=== PATIENT | female | born 1985 | race Asian ===

== ENCOUNTER 2019-05-31 09:27 | Outpatient (CLI) | payer MEDICAID ==
[2019-05-31 09:55] LABS: APPEARANCE,URINE CLEAR; BILIRUBIN, URINE NEGATIVE (NEGATIVE); GLUCOSE, URINE (UA) NEGATIVE (NEGATIVE); KETONES,URINE 1+ (NEGATIVE); LEUKOCYTE ESTERASE ,URINE 1+ (NEGATIVE); NITRITE,URINE NEGATIVE (NEGATIVE); PH,URINE 6 (4.5-8.0); PROTEIN,URINE 1+ (NEGATIVE); UROBILINOGEN,URINE NORMAL MG/DL (0.0-1.0)
[2019-05-31 10:09] LABS: COLOR,URINE YELLOW
[2019-05-31 10:13] LABS: ANION GAP 11 mmol/L (5-15); BLOOD UREA NITROGEN 17 mg/dL (7-18); CALCIUM 9.2 MG/DL (8.5-10.1); CARBON DIOXIDE 26 MMOL/L (21-32); CHLORIDE 103 MMOL/L (98-107); CREATININE 0.8 MG/DL (0.55-1.30); POTASSIUM 3.6 MMOL/L (3.5-5.1); SODIUM 140 MMOL/L (136-145)
[2019-05-31 10:14] LABS: EOSINOPHILS % (AUTO) 4.3 % (0.0-3.0); HEMOGLOBIN 15.1 G/DL (12.0-16.0); LYMPHOCYTES % (AUTO) 34.1 % (20.0-45.0); MEAN CORPUSCULAR VOLUME 89 FL (80-99); MONOCYTES % (AUTO) 8.1 % (1.0-10.0); NEUTROPHILS % (AUTO) 52.4 % (45.0-75.0); PLATELET COUNT 345 K/UL (150-450); RED BLOOD COUNT 4.83 M/UL (4.20-5.40); RED CELL DISTRIBUTION WIDTH 10.9 % (11.6-14.8); WHITE BLOOD COUNT 6.2 K/UL (4.8-10.8)
[2019-05-31 10:19] LABS: INR 0.9 (0.9-1.1)
--- NOTE | 2019-05-31 14:50 | Diagnostic Imaging Report ---
Indication: Cough Technique: 2 views of the chest Comparison: None Findings: Lungs and pleural spaces are clear. The heart size is normal. The bones are unremarkable. No significant interim change. Impression: Negative
== END 2019-05-31 11:27 | disposition home or self-care (01) ==
LOC: RAD 09:27
DX: R05 Cough (principal)
CPT/HCPCS: 36415; 71046; 80048; 81001; 81025; 85025; 85610; 85730; 93005

== ENCOUNTER 2019-06-12 09:18 | Inpatient (IN) | payer MEDICAID ==
--- NOTE | 2019-06-08 16:00 | Pre-op HX & Phy Repo 2 SIG ---
DATE OF ADMISSION: 06/12/2019 DATE OF SURGERY: June 12, 2019. HISTORY OF PRESENT ILLNESS: The patient is a 34-year-old female in overall good health with a very strong family history of breast cancer and who has undergone genetic testing, which was negative, but has been diagnosed with invasive ductal carcinoma. She presented with bilateral breast pain. Mammogram and ultrasound were performed revealing an abnormality in the right breast low inner quadrant 3 o'clock 4 cm from the nipple, 1.8 cm mass and enlarged right axillary lymph node. Core biopsy of the right breast mass revealed invasive ductal carcinoma, estrogen and progesterone receptor negative, HER 2-, Ki-67 85%. The core biopsy of the right axillary lymph node was negative for carcinoma. She is scheduled to undergo right breast partial mastectomy and right axillary lymph node biopsy. She has consulted with oncologist who has advised to proceed with surgery at this time with additional treatment pending final pathology. PAST HISTORY: MEDICATIONS: She takes Zyrtec and Aleve as needed symptoms. ALLERGIES: None. OPERATIONS: Appendectomy in 1998. She is nulliparous. She has irregular menstrual periods. PHYSICAL EXAMINATION: VITAL SIGNS: The patient is 5 feet and 3 inches, 148 pounds. Vital signs within normal limits. HEENT: Within normal limits. LUNGS: Clear. HEART: Regular rhythm. BREASTS: Moderate in size and non ptotic. Left breast unremarkable. Right breast has palpable nodularity in the inner sector 3 o'clock between the areolar border in the periphery. There is no fixation to the chest wall or to the nipple areolar complex. There is only shotty axillary lymphadenopathy. No supraclavicular lymphadenopathy. ABDOMEN: Soft. PELVIC AND RECTAL: Per primary care. EXTREMITIES: Without edema. NEUROLOGIC: Physiologic. IMPRESSION: Invasive ductal carcinoma, right breast. PLAN: Right breast partial mastectomy and right axillary lymph node biopsy. I have had a full discussion with the patient regarding the nature of her condition, the nature of the surgery, indications, alternatives, options, and risks including bleeding, infection, injury to adjacent structures or organs, deformity of breast and/or nipple, need for additional treatment including surgery and other treatments including radiation, chemotherapy based on final pathology. All questions have been answered. She understands and agrees to proceed. Martín Hernandez M.D. DR: Miguel Ángel JOB#: [id number] CC: JORGE LUIS
[2019-06-12] VITALS (11 sets, daily range): BP systolic 124–150; BP diastolic 77–95
[~2019-06-12] VITALS: Ht 160 cm; Wt 65.3 kg
[2019-06-12] MEDS ORDERED: Lidocaine 1% 10mg/ml/Epi 0.005mg/ml 30ml vial INJ ONE (10:10)
[2019-06-12] MEDS ORDERED: Bupivacaine 0.5% Inj 30 ml vial INJ ONE (10:10)
[2019-06-12] MEDS ORDERED: Bupivacaine w/Epi 0.5% 30ml Vial INJ ONE (10:11)
[2019-06-12] MEDS ORDERED: NeoSporin Gu Irrig 1ml Amp IRRIG ONE (10:11)
[2019-06-12] MEDS ORDERED: Bacitracin 50000 Units Vial ONE (10:11)
[2019-06-12] MEDS ORDERED: ZYRTEC10 MG ORAL (10:16)
[2019-06-12] MEDS ORDERED: LR 1000ml 1,000 ML IVLG SCH (10:19)
--- NOTE | 2019-06-12 10:23 | Anethesia Preoperative Eval ---
Anesthesia Pre-op PMH/ROS General Date of Evaluation: Jun 12, 2019 Time of Evaluation: 11:19 Anesthesiologist: Juan ASA Score: ASA 2 Mallampati Score Class I : Soft palate, uvula, fauces, pillars visible Class II: Soft palate, uvula, fauces visible Class III: Soft palate, base of uvula visible Class IV: Only hard plate visible Mallampati Classification: Class I Surgeon: David Diagnosis: Right Breast Invasive Ductal Carcinoma Surgical Procedure: Right Breast Partial Mastectomy, R Axillary Lymph Node Biopsy Anesthesia History: none Family History: no anesthesia problems Allergies: Coded Allergies: No Known Allergies (Unverified , 06/09/19) Medications: see eMAR Patient NPO?: Yes NPO Date: Jun 12, 2019 NPO Time: 2199 Past Medical History Pulmonary: Reports: asthma Gastrointestinal/Genitourinary: Reports: GERD - GI Ulcer Hematology/Immune: Reports: other - Right Breast Invasive Ductal Carcinoma Anesthesia Pre-op Phys. Exam Physician Exam Last Vital Signs Date Time Temp Pulse Resp B/P (MAP) Pulse Ox O2 Delivery O2 Flow Rate FiO2 06/12/19 10:14 Room Air 06/12/19 10:11 97.8 66 18 130/77 (94) 98 Constitutional: NAD Neurologic: CN 2-12 intact Cardiovascular: RRR Respiratory: CTA Gastrointestinal: S/NT/ND Airway Exam Mallampati Score: Class I MO: full ROM: full Teeth: intact Anesthesia Pre-op A/P Risk Assessment & Plan Assessment: ASA 2 Plan: GA, SED Status Change Before Surgery: No Pre-Antibiotics Dru Gram Ancef IV Given Within 1 Hr of Incision: Yes Time Given: 11:36 Joo Martinez MD Jun 12, 2019 10:23
--- NOTE | 2019-06-12 10:28 | Immediate Post-Op Evaluation ---
Immediate Post-Op Evalulation Immediate Post-Op Evalulation Procedure: Right Breast Partial Mastectomy, R Axillary Lymph Node Biopsy Date of Evaluation: Jun 12, 2019 Time of Evaluation: 13:24 IV Fluids: 400 LR Blood Products: 0 Estimated Blood Loss: 25 Urinary Output: 0 Blood Pressure Systolic: 134 Blood Pressure Diastolic: 93 Pulse Rate: 80 Respiratory Rate: 16 O2 Sat by Pulse Oximetry: 100 Temperature (Fahrenheit): 98.4 Pain Score (1-10): 2 Nausea: No Vomiting: No Complications 0 Patient Status: awake, reacts, patent, none Hydration Status: adequate Dru Gram Ancef IV Given Within 1 Hr of Incision: Yes Time Given: 13:36 Joo Martinez MD Jun 12, 2019 10:28
[2019-06-12] MEDS ORDERED: Atropine Sulfate 0.4mg/ml inj IVP PRN (10:30)
[2019-06-12] MEDS ORDERED: Meperidine 25mg/0.5ml Inj (FOR RIGORS ONLY) IV PRN (10:30)
[2019-06-12] MEDS ORDERED: HYDROcodone/Acetamin 7.5/325 tab ORAL PRN (10:30)
[2019-06-12] MEDS ORDERED: Ketorolac 30mg Inj IV PRN ×2 (10:30)
[2019-06-12] MEDS ORDERED: Acetaminophen (Non formulary) 100 ML IV ONE (10:30)
[2019-06-12] MEDS ORDERED: Metoclopramide 10mg/2ml Inj IVP PRN ×2 (10:30→13:00)
[2019-06-12] MEDS ORDERED: Hydromorphone 0.5mg/0.5ml inj IVP PRN (10:30)
[2019-06-12] MEDS ORDERED: DiphenhydrAMINE 50mg/ml Inj IVP PRN (10:30)
[2019-06-12] MEDS ORDERED: Midazolam 2mg/2ml Inj IVP PRN (10:30)
[2019-06-12] MEDS ORDERED: Labetalol 5mg/ml 20ml vial IV PRN (10:30)
[2019-06-12] MEDS ORDERED: HYDROcodone/Acetamin 5/325 tab ORAL PRN (10:30)
[2019-06-12] MEDS ORDERED: LORazepam Inj 2mg/ml 1ml IV PRN (10:30)
[2019-06-12] MEDS ORDERED: oxyCODONE HCL/Acetaminophen 5/325mg ORAL PRN (10:30)
[2019-06-12] MEDS ORDERED: fentaNYL 100 mcg/2 mL IV PRN (10:30)
[2019-06-12] MEDS ORDERED: Lidocaine 1% MPF 10mg/ml 5ml ONE (10:38)
[2019-06-12] MEDS ORDERED: Propofol 200mg/20ml IV ONE (10:38)
[2019-06-12] MEDS ORDERED: Dexamethasone 4mg/ml vial ONE (10:38)
[2019-06-12] MEDS ORDERED: fentaNYL 100 mcg/2 mL IV ONE ×2 (10:39→11:54)
[2019-06-12] MEDS ORDERED: Lidocaine 1% Plain 30 ml INJ ONE (10:40)
--- NOTE | 2019-06-12 10:57 | Pre-Procedure Note/Attestation ---
Pre-Procedure Note/Attestation Complete Prior to Procedure Planned Procedure: right Procedure Narrative: right breast partial mastectomy and right axillary lymph node biopsy Indications for Procedure Pre-Operative Diagnosis: invasive ductal carcinoma right breast Attestation I attest that I discussed the nature of the procedure; its benefits; risks and complications; and alternatives (and the risks and benefits of such alternatives ), prior to the procedure, with the patient (or the patient's legal sales representative [employer]). I attest that, if there was a reasonable possibility of needing a blood transfusion, the patient (or the patient's legal sales representative [employer]) was given the [facility] standardized written summary, pursuant to the Rm Denzel Blood Safety Act ([place] Health and Safety Code # 1645, as amended). I attest that I re-evaluated the patient just prior to the surgery and that there has been no change in the patient's H&P, except as documented below: none Martín Hernandez MD Jun 12, 2019 10:57
[2019-06-12] MEDS ORDERED: LR 1000ml ONE (11:00)
[2019-06-12] MEDS ORDERED: NS Irrig 1000ml ONE (11:00)
[2019-06-12] MEDS ORDERED: Sterile Water Irrig 1000ml IRRIG ONE (11:00)
[2019-06-12] MEDS ORDERED: D5 1/2NS w/KCl 20mEq 1,000 ML IV SCH (12:59)
--- NOTE | 2019-06-12 13:08 | Brief Operative Note ---
Immediate Post Operative Note Operative Note Pre-op Diagnosis: invasive ductal carcinoma right breast Procedure: right breast partial mastectomy and right axillary lymph node biopsy Post-op Diagnosis: same Post-op Diagnosis: same as pre-op Findings: consistent w/pre-op dx studies Surgeon: shilo Anesthesiologist: nina Anesthesia: general Specimen: yes - right breast cancer, right axillary lymph nodes Complications: none Condition: stable Fluids: see anesthesia record Estimated Blood Loss: minimal Drains: JAYCOB Implant(s) used?: No Martín Hernandez MD Jun 12, 2019 13:08
--- NOTE | 2019-06-12 14:20 | NUR ---
NURSE NOTES: Patient arrived on unit via hospital bed. Stable. Denies pain or SOB. Surgical dressing c/d/i. JAYCOB to bulb suction as ordered. SCD on guilherme. lower extremities. Plan of care discussed with patient. Patient oriented to room, unit, and call light. Patient instructed to use call light for assistance, verbalized understanding. All safety measures provided. Patient is in bed in locked and lowest position with call light within reach. All needs met at this time. Will continue to monitor.
[2019-06-12] MEDS ORDERED: DiphenhydrAMINE 25mg Tab ORAL PRN (15:00)
[2019-06-12] MEDS: D5 1/2NS w/KCl 20mEq 1,000 ML IV SCH (15:30)
--- NOTE | 2019-06-12 15:45 | Operative Note - Dictated ---
DATE OF OPERATION: 06/12/2019 SURGEON: Martín Hernandez M.D. ARCHITECTURE INTERN: None. ANESTHESIOLOGIST: Joo Martinez M.D. TYPE OF ANESTHESIA: General endotracheal. PREOPERATIVE DIAGNOSIS: Invasive ductal carcinoma, right breast. POSTOPERATIVE DIAGNOSIS: Invasive ductal carcinoma, right breast. OPERATION PERFORMED: Right breast partial mastectomy and right axillary lymph node biopsy. DESCRIPTION OF PROCEDURE: The patient was taken to the operating room and under general anesthesia with sequential compression device stockings in place, she was prepped and draped in the usual fashion. The lesion was located at 3 o'clock in the right breast 4 centimeters medial to the nipple. A transverse incision was made from the areolar border towards the periphery and flaps dissected circumferentially. A wide excision was performed down to the pectoralis fascia. The specimen was oriented with sutures placed anterior, medial, and superior. The pathologist inspected the tissue and felt the superior margin was closed and additional superior tissue was taken. The field was irrigated with sterile water and then antibiotic solution and hemostasis carefully achieved with cautery. The incision was closed with interrupted deep dermal subcutaneous of 2-0 Vicryl sutures followed by continuous 4-0 Monocryl subcuticular suture. A right axillary incision was made achieving hemostasis with cautery and incising the clavipectoral fascia. An obvious enlarged lymph gland was visualized and resected with a limited axillary dissection using the Thunderbeat specimen vessel sealing device. The pathologist confirmed the presence of lymph nodes. Through a separate stab incision inferiorly, a 10 flat [place] was placed into the axilla and sutured to the skin with a 3-0 silk skin suture. The field was irrigated and hemostasis was secured. The clavipectoral fascia was closed with interrupted 3-0 Vicryl, subcutaneous tissue was closed with interrupted 3-0 Vicryl, and skin closed with continuous 4-0 Monocryl subcuticular suture. Mastisol and half-inch Steri-Strips were applied to both incisions followed by dry sterile dressing. Final sponge and needle counts were correct. A postsurgical brassiere was applied. The patient tolerated the procedure well and left the operating room in good condition. Martín Hernandez M.D. DR: TRE JOB#: [id number] CC:
[2019-06-12] MEDS: HYDROcodone/Acetamin 5/325 tab ORAL PRN (16:08)
[2019-06-12] MEDS: HYDROmorphone 1mg/ml Carpuject SUBQ PRN ×2 (18:32→21:32)
--- NOTE | 2019-06-12 19:00 | NUR ---
NURSE NOTES: JAYCOB output: 25cc bloody output. JAYCOB teaching given, verbalized understanding.
--- NOTE | 2019-06-12 19:19 | NUR ---
HAND-OFF: Report given to Kely FLORES. Patient is stable.
--- NOTE | 2019-06-12 19:55 | NUR ---
NURSE NOTES: Received report from Grayson Farrar, pt awake sitting up in bed no s/s of distress .Pt is a/ox4, breaths regular and un labored . pt c/o pain 06/29, will provide pain medication as ordered . Pt Suraj is on the R side , dressing clean intact , pt wearing a Surgical bra. Pt has LT hand 20G with i.v fluids running , patent and asymptomatic. Pt wearing bilateral SCD call light with in reach, bed in low locked position
[2019-06-12] MEDS: ceFAZolin sod 1 GM in D5W 55 ML IV SCH (20:50)
[2019-06-12] MEDS ORDERED: ceFAZolin sod 1 GM in D5W 55 ML IV SCH (21:00)
[2019-06-13] VITALS: BP 124/79
[2019-06-13] MEDS: HYDROmorphone 1mg/ml Carpuject SUBQ PRN ×2 (01:54→06:27)
[2019-06-13 04:00] VITALS: BP 121/81
[2019-06-13] MEDS: ceFAZolin sod 1 GM in D5W 55 ML IV SCH (04:16)
[2019-06-13] MEDS: D5 1/2NS w/KCl 20mEq 1,000 ML IV SCH ×2 (04:16→17:41)
--- NOTE | 2019-06-13 07:27 | NUR ---
HAND-OFF: Report given to Leni FLORES. PT stable.
--- NOTE | 2019-06-13 07:30 | NUR ---
NURSE NOTES: Patient is in bed awake and able to verbalize needs. Stable. Denies severe pain or SOB but says she was unable to get sleep last night. Will encourage rest and offer pain medication as ordered. Surgical dressing c/d/i, surgical bra on. JAYCOB to bulb suction, will reinforce teaching as needed. Patient is in bed in locked position with call light within reach. All needs met at this time. Will continue to monitor.
[2019-06-13 08:00] VITALS: BP 124/94
--- NOTE | 2019-06-13 10:21 | NUR ---
CASE MANAGEMENT: INITIAL REVIEW 34YR OLD FEMALE HERE FOR ELECTIVE SURGERY CC: RIGHT BREAST MASS INVASIVE DUCTAL CARCINOMA SI: INVASIVE CARCINOMA OF RIGHT BREAST 97.8 66 18 130/77 98% ON RA HCG URINE (NEGATIVE) IS:IN SURGERY NOW RIGHT BREAST PARTIAL MASTECTOMY AND RIGHT AXILLARY LYMPH NODE BIOPSY \: [facility] UN[facility] DCP: HOME WHEN STABLE CASE MANAGEMENT: REVIEW 06/13/19 SI:S/P RIGHT BREAST PARTIAL MASTECTOMY AND RIGHT AXILLARY LYMPH NODE BIOPSY 97.8 85 20 124/94 99% ON RA IS:IV D5@75ML/HR DILAUDID SQ Q3HR/PRN NORCO Q4HR/PRN \: [facility] UN[facility] DCP: HOME WHEN STABLE
[2019-06-13] MEDS: HYDROcodone/Acetamin 5/325 tab ORAL PRN ×2 (11:21→17:40)
--- NOTE | 2019-06-13 11:23 | NUR ---
NURSE NOTES: Patient able to empty JAYCOB drain independently with RN at bedside. Patient verbalized that she feels comfortable emptying and recording drain.
[2019-06-13 12:00] VITALS: BP 118/73
--- NOTE | 2019-06-13 13:03 | 48 Hour Post Anesthesia Eval ---
Post Anesthesia Evaluation Procedure: Right Breast Partial Mastectomy, R Axillary Lymph Node Biopsy Date of Evaluation: Jun 13, 2019 Time of Evaluation: 13:02 Blood Pressure Systolic: 118 0: 73 Pulse Rate: 75 Respiratory Rate: 20 Temperature (Fahrenheit): 98 O2 Sat by Pulse Oximetry: 99 Airway: patent Nausea: No Vomiting: No Pain Intensity: 2 Hydration Status: adequate Cardiopulmonary Status: Stable Mental Status/LOC: patient returned to baseline Follow-up Care/Observations: 0 Post-Anesthesia Complications: 0 Follow-up care needed: ready to discharge Joo Martinez MD Jun 13, 2019 13:03
--- NOTE | 2019-06-13 13:15 | General Progress Note ---
Progress Note Progress Note Having pain and nausea, required parenteral dilaudid and minimal po intake right breast and axilla incisions clean with intact steristrips JAYCOB serosang Imp: Pain and inability to take po intake Plan: Maintain in hospital adjust meds as needed anticipate discharge in AM if improved and using po analgesics Martín Hernandez MD Jun 13, 2019 13:15
[2019-06-13] MEDS ORDERED: Tubing IV Secondary IV ONE (15:42)
[2019-06-13 16:00] VITALS: BP 127/78
--- NOTE | 2019-06-13 18:53 | NUR ---
NURSE NOTES: Patient's pain is still moderate-severe but is managed by [place], patient denies needing stronger pain medication. JAYCOB output: 25cc blood tinged output. Patient is able to empty JAYCOB independently with RN at bedside, no further instructions are needed. Surgical dressing c/d/i, changed today. Surgical bra is in place. Extra surgical dressing change supplies at bedside.
--- NOTE | 2019-06-13 19:40 | NUR ---
NURSE NOTES: Receive a report from SANDRA Farrar. Round is done. Pt is awake and alert. But pt states that her pain level went up to 8/10 during rounds and request one more dose of [place] 5/325, which has given in 2 hours. Offer IV medication but pt refuses it d/t S/E. AM nurse says that she is going to call Dr. Hernandez. Will continue to follow up.
--- NOTE | 2019-06-13 19:43 | NUR ---
NURSE NOTES: Patient c/o 10/29 pain, paged Dr. Hernandez regarding possible increase in dose for pain medication. Awaiting response, endorsed to Mihai FLORES.
--- NOTE | 2019-06-13 19:45 | NUR ---
HAND-OFF: Report given to MARCO Ao RN. Patient is stable.
--- NOTE | 2019-06-13 19:49 | NUR ---
NURSE NOTES: New orders to D/C [employer] 5/325mg and give Percocet 5/325mg PO PRN pain read back and endorsed to Boogie RN.
[2019-06-13 20:00] VITALS: BP 145/82
[2019-06-13] MEDS ORDERED: oxyCODONE HCL/Acetaminophen 5/325mg ORAL SCH (20:00)
[2019-06-13] MEDS ORDERED: oxyCODONE HCL/Acetaminophen 5/325mg ORAL PRN (20:00)
--- NOTE | 2019-06-13 21:00 | NUR ---
NURSE NOTES: After taking percocet, denies pain. No S/E noted. Will continue to monitor. Seros color drainage nted on JAYCOB on right axilla.
--- NOTE | 2019-06-14 | NUR ---
NURSE NOTES: Pt is asleep after taking a sleeping pill. No noted pain at this time. Will continue to monitor.
--- NOTE | 2019-06-14 04:00 | NUR ---
NURSE NOTES: Pt is asleep. Will continue to monitor.
[2019-06-14 06:00] VITALS: BP 133/89
[2019-06-14] MEDS: D5 1/2NS w/KCl 20mEq 1,000 ML IV SCH (06:00)
--- NOTE | 2019-06-14 06:00 | NUR ---
NURSE NOTES: No acute distress noted. Pt says that pain woke her up, scale 8/10. Will continue to follow up her pain after prn pain medication. Dressing kept dry and clean with surgical bra. 12hr JAYCOB drain:20ml
--- NOTE | 2019-06-14 07:50 | NUR ---
HAND-OFF: Report given to Tesha/Moustapha Ortega. Round is done. Pt is asleep.
[2019-06-14 08:00] VITALS: BP 131/81
--- NOTE | 2019-06-14 08:00 | NUR ---
NURSE NOTES: Received report from o RN. Patient is asleep during rounds, no acute distress noted, RR even and unlabored. IVF running per order. Side rails ux2, bed low and locked, call light within reach.
--- NOTE | 2019-06-14 09:35 | General Progress Note ---
Progress Note Progress Note Required Percocet for adequate pain relief. Now better and fells ready for discharge. tolerating po intake and ambulation right breast and axilla healing nicely JAYCOB 20cc Imp: stable Plan; discharge Rx Percocet #24 Instructions/limitations/supplies discussed/provided f/u 06/18 office Martín Hernandez MD Jun 14, 2019 09:35
--- NOTE | 2019-06-14 11:30 | NUR ---
Patient discharged without distress. Aftercare instructions provided to patient and patient verbalized understanding of after care instructions. Patient verbalized understanding of JAYCOB drain care, provided patient with drain care supplies per MD order. IV removed intact. Patient escorted to private vehicle.
--- NOTE | 2019-06-15 11:59 | Discharge Summary ---
Discharge Summary Hospital Course Date of Admission Jun 12, 2019 at 14:03 Date of Discharge Jun 14, 2019 at 11:30 Admitting Diagnosis Invasive ductal carcinoma, right breast Reason for Hospitalization: elective surgery HPI Lindy Cabrera is a 34 year old female who was admitted on Jun 12, 2019 at 14:03 for invasive ductal carcinoma, right breast. Patient was admitted for elective surgery Procedures Invasive ductal carcinoma, right breast. OPERATION PERFORMED: Right breast partial mastectomy and right axillary lymph node biopsy. Hospital Course status post surgery course of recovery uneventful initially IV fluids s/p perioperative antibiotics JAYCOB drain output closely monitored initially with the pain requiring parenteral Dilaudid and nausea antiemetic provided as needed right breast and axilla incisions clean , with intact Steri-Strips pain management was addressed pain was afterwards controlled with oral analgesic patient remained hemodynamically stable ambulated tolerated diet , IV fluids discontinued voided freely bowel regimen instituted tight breast and axilla incisions healing nicely tolerated diet pain controlled ambulated voided patient was instructed how to care for JAYCOB drain patient was stable for discharge home prescription for Percocet provided discharge instructions/ limitation/supplies discussed/provided patient to follow-up in the office with surgeon on 06/18. FINAL DIAGNOSES Invasive ductal carcinoma, right breast. s/p Right breast partial mastectomy and right axillary lymph node biopsy. Discharge Medications Continued Medications: Cetirizine Hcl* (Zyrtec*) 10 Mg Tablet 10 MG ORAL DAILY for allergy, #30 TAB 0 Refills (This prescription has been renewed) Discharge Condition Upon Discharge: stable Discharge Vital Signs Last Vital Signs Date Time Temp Pulse Resp B/P (MAP) Pulse Ox O2 Delivery O2 Flow Rate FiO2 06/14/19 09:00 Room Air 06/14/19 08:00 98.7 67 16 131/81 (98) 97 06/12/19 14:15 3 Discharge Disposition Patient was discharged home Discharge Instructions Discharge Instructions Special Instructions I have been assigned to complete a D/C Summary on this account. I was not involved in the patient management Yudelka Peralta NP Jun 15, 2019 11:59
== END 2019-06-14 11:30 | disposition home or self-care (01) | DRG 363 ==
LOC: SUR 09:18 → 3E 14:03
PROC: 07B50ZX Excision of Right Axillary Lymphatic, Open Approach, Diagnostic (ICD-10-PCS; 2019-06-12)
PROC: 0HBT0ZZ Excision of Right Breast, Open Approach (ICD-10-PCS; principal; 2019-06-12 11:30)
DX: C50.811 Malignant neoplasm of overlapping sites of right female breast (principal); K21.9 Gastro-esophageal reflux disease without esophagitis; Z17.1 Estrogen receptor negative status [ER-]
CPT/HCPCS: 81025; 87081; 94003; 94150; J2180; J2405